=== PATIENT | male | born 1980 | race Caucasian/White ===

== ENCOUNTER 2023-11-06 12:26 | Emergency (ER) | payer OTHER ==
[~2023-11-06] VITALS: Ht 188 cm; Wt 89.8 kg
[~2023-11-06 12:26] MED LIST: KEPPRA750 MG PO; LEVETIRACETAM750 MG PO
--- OUTSIDE RECORDS SUMMARY | 2023-11-06 12:34 | XMS ---
PreManage Notification: ELLIE MCKEON Security [employer] Events No recent Security Events currently on file CRITERIA MET - 6 ED Visits in 6 Months - [facility] - 2 Visits in 30 Days CARE PROVIDERS Kiko Weaver Community Health Worker 10/25/2021-Current PHONE: [phone] -, Tod- Dentist: Cnc Supervisor [facility] PHONE: [phone] Ruperto has no Care Guidelines for this patient. EYogi VISIT COUNT (12 MO.) [address] [place] [address] Jesse Maddox TOTAL 7 NOTE: Visits indicate total known visits. ED/UCC VISIT TRACKING (12 MO.) 11/06/2023 12:27 [facility] [place] TYPE: Emergency COMPLAINT: - R ARM PAIN 10/11/2023 09:55 [facility] [place] TYPE: Emergency DIAGNOSES: - Contusion of right foot, initial encounter - RT FOOT PAIN 07/27/2023 09:44 [facility] [place] TYPE: Emergency DIAGNOSES: - Nondisplaced fracture of base of third metacarpal bone, right hand, initial encounter for closed fracture - R HAND PAIN 07/27/2023 03:[address] [facility] [place] TYPE: Emergency COMPLAINT: - SEIZURE DIAGNOSES: - Epilepsy, unspecified, not intractable, without status epilepticus - Unspecified convulsions 05/30/2023 14:30 [facility] [place] TYPE: Emergency DIAGNOSES: - Contusion of left front wall of thorax, initial encounter - R ARM PAIN 05/29/2023 05:43 [facility] TYPE: Emergency DIAGNOSES: - Strain of muscle, fascia and tendon of triceps, unspecified arm, initial encounter - Unspecified convulsions - Seizure - Seizures 04/08/2023 14:56 [facility] [place] TYPE: Emergency DIAGNOSES: - Constipation, unspecified - Left lower quadrant pain - Left upper quadrant pain - L SIDE PAIN INPATIENT VISIT TRACKING (12 MO.) No inpatient visits to display in this time frame [email or web address]
[2023-11-06] MEDS ORDERED: IBU800 MG PO (17:55)
[2023-11-06 18:09] VITALS: BP 131/79
== END 2023-11-06 18:10 | disposition home or self-care (01) ==
LOC: ED 12:26
DX: M25.511 Pain in right shoulder (principal); G40.909 Epilepsy, unspecified, not intractable, without status epilepticus; Z79.899 Other long term (current) drug therapy
CPT/HCPCS: 99283; A9270